=== PATIENT | female | born 1955 | race Caucasian/White ===

== ENCOUNTER → 2019-07-01 | Outpatient (CLI) | payer OTHER ==
--- NOTE | 2019-07-01 12:08 | RAD ---
KNEE RIGHT 2V 07/01/2019 12:00 AM INDICATION: Rheumatoid arthritis COMPARISON: None available. TECHNIQUE: 2 views of the right knee are provided. FINDINGS: There is no acute fracture or dislocation. Bone mineralization is within normal limits. Joint spaces are maintained. Regional soft tissues are within normal limits. There is no soft tissue gas or osseous erosion. Mild patellar enthesopathy. IMPRESSION: No acute fracture or dislocation. Electronically signed by: Fanny Grigsby MD (07/01/2019 12:05 PM) [id number]
--- NOTE | 2019-07-01 12:12 | RAD ---
HAND RIGHT 2V 07/01/2019 12:00 AM INDICATION: Rheumatoid arthritis COMPARISON: None available. TECHNIQUE: 2 views the right hand are provided. FINDINGS: There is no acute fracture or dislocation. Bone mineralization is within normal limits. Joint spaces are maintained. Regional soft tissues are within normal limits. There is no soft tissue gas or osseous erosion. IMPRESSION: No acute fracture or dislocation. Electronically signed by: Fanny Grigsby MD (07/01/2019 12:09 PM) [email or web address]
--- NOTE | 2019-07-01 13:20 | RAD ---
LUMBAR SPINE 2-3V 07/01/2019 12:00 AM Indication: Psoriatic arthritis COMPARISON: None available TECHNIQUE: 2 views of the lumbar spine are provided. Findings: There are 5 nonrib-bearing lumbar type vertebral bodies. Predominant dextroconvex scoliosis of the thoracolumbar spine with apex dextrocurvature at L1-L2. There is compensatory levoconvex curvature at L4-L5. Cholecystectomy clips are identified in the right upper quadrant abdomen. Sacroiliac joints are well aligned. Phleboliths are identified within the pelvis. There is nonobstructive bowel gas pattern. No significant abnormality involving sagittal alignment. There is moderate to severe facet arthropathy lower lumbar spine. Disc heights are maintained. Mild anterior marginal osteophytosis. Atherosclerotic changes of the abdominal aorta are present. IMPRESSION: Dextro convex scoliosis of the thoracolumbar spine with moderate to advanced facet arthropathy. No acute fracture is suspected. Electronically signed by: Fanny Grigsby MD (07/01/2019 1:17 PM) [email or web address]
== END | disposition home or self-care (01) ==
LOC: RAD 10:59
PROVIDERS: ATTEND Internal Medicine
DX: Z02.71 Encounter for disability determination (principal); M76.891 Other specified enthesopathies of right lower limb, excluding foot; M05.9 Rheumatoid arthritis with rheumatoid factor, unspecified; M41.85 Other forms of scoliosis, thoracolumbar region; M12.88 Other specific arthropathies, not elsewhere classified, other specified site; I87.8 Other specified disorders of veins; I70.0 Atherosclerosis of aorta; Z90.49 Acquired absence of other specified parts of digestive tract
CPT/HCPCS: 72100; 73120; 73560